=== PATIENT | female | born 1985 | race African-American/Black ===

== ENCOUNTER 2020-05-08 16:03 | Emergency (ER) | payer MEDICAID ==
--- NOTE | 2020-05-08 16:45 | EDM.PDOC ---
ED HPI GENERAL MEDICAL PROBLEM - General Chief Complaint: Chest Pain Stated Complaint: CHEST PAIN Time Seen by Provider: 05/08/20 16:05 Source of Information: Reports: Patient, Old Records, RN History Limitations: Reports: No Limitations - History of Present Illness INITIAL COMMENTS - FREE TEXT/NARRATIVE: 35 yo female here with L chest and L mandibular pain. Both about 2 days worth of pain. Pain is not severe. No other sx's. No fever. Has a pHx of bad teeth. Has a dentist, but has yet to call. Thinks the acetaminophen she is taking is helping enough. Denies injury or cough or fever. No cardiac hx. Onset: Gradual Onset Date: 05/06/20 Duration: Day(s):, Waxing/Waning Location: Reports: Face, Chest Quality: Reports: Ache Severity: Mild Improves with: Reports: Medication Worsens with: Reports: Movement (of L arm with regards to the chest pain. ) Context: Reports: Other (See HPI) Associated Symptoms: Reports: Chest Pain (L lateral). 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 - Related Data Allergies Allergy/AdvReac Type Severity Reaction Status Date / Time diphenhydramine Allergy Hives Verified 05/08/20 16:19 [From Benadryl] Home Meds: Home Meds Clindamycin HCl 150 mg PO QID #28 capsule 05/08/20 [Rx] Past Medical History Psychiatric History: Reports: Depression Social & Family History - Tobacco Use Tobacco Use Status *Q: Current Every Day Tobacco User Years of Tobacco use: 12 Packs/Tins Daily: 0.5 ED ROS GENERAL - Review of Systems Review Of Systems: See Below Constitutional: Reports: No Symptoms HEENT: Reports: Dental Pain Respiratory: Reports: No Symptoms Cardiovascular: Reports: Chest Pain (L lateral chest wall pain. ) GI/Abdominal: Reports: No Symptoms : Reports: No Symptoms Musculoskeletal: Reports: Other (L chest wall) Skin: Reports: No Symptoms. Denies: Rash, Erythema Neurological: Reports: No Symptoms Psychiatric: Reports: No Symptoms ED EXAM, GENERAL - Physical Exam Exam: See Below Exam Limited By: No Limitations General Appearance: Alert, WD/WN, No Apparent Distress, Obese Eye Exam: Bilateral Eye: Normal Inspection Ears: Normal External Exam, Normal Canal, Hearing Grossly Normal, Normal TMs Ear Exam: Bilateral Ear: Auricle Normal, Canal Normal, TM normal Nose: Normal Inspection, No Blood Throat/Mouth: Normal Inspection, Normal Lips, Normal Oropharynx, Normal Voice, No Airway Compromise. No: Normal Teeth (teeth in very poor condition through out.) Head: Atraumatic, Normocephalic Neck: Normal Inspection Respiratory/Chest: No Respiratory Distress, Lungs Clear, Normal Breath Sounds, No Accessory Muscle Use. No: Chest Non-Tender (L chest wall mild tenderness) Cardiovascular: Regular Rate, Rhythm, No Edema Back Exam: Normal Inspection Extremities: Normal Inspection Neurological: Alert, Oriented, CN II-XII Intact, Normal Cognition, No Motor/Sensory Deficits Psychiatric: Normal Affect, Normal Mood Skin Exam: Warm, Dry, Intact, Normal Color, No Rash Course - Vital Signs Last Recorded V/S: Last Vital Signs Temp 36.1 C 05/08/20 16:24 Pulse 74 05/08/20 16:24 Resp 14 05/08/20 16:24 BP 141/82 H 05/08/20 16:24 Pulse Ox 100 05/08/20 16:24 Departure - Departure Time of Disposition: 16:46 Disposition: Home, Self-Care 01 Condition: Fair Clinical Impression: Dental infection, Chest wall pain - Discharge Information *PRESCRIPTION DRUG MONITORING PROGRAM REVIEWED*: Not Applicable *COPY OF PRESCRIPTION DRUG MONITORING REPORT IN PATIENT SHAHRIAR: Not Applicable Prescriptions: Clindamycin HCl 150 mg PO QID #28 capsule Instructions: Chest Wall Pain, [id number] Referrals: PCP,None [Primary Care Provider] - Additional Instructions: See your dentist jeremiah. Take the clindamycin as directed. Take acetaminophen and/or ibuprofen as needed for pain relief. Sepsis Event Note (ED) - Evaluation Sepsis Screening Result: No Definite Risk - Focused Exam Vital Signs: Vital Signs Temp Pulse Resp BP Pulse Ox 05/08/20 16:24 36.1 C 74 14 141/82 H 100
== END 2020-05-08 16:53 | disposition home or self-care (01) ==
LOC: JP.ED 16:03
DX: K04.7 Periapical abscess without sinus (principal); R07.89 Other chest pain; Z88.8 Allergy status to other drugs, medicaments and biological substances; F17.210 Nicotine dependence, cigarettes, uncomplicated
CPT/HCPCS: 99283

== ENCOUNTER 2021-03-02 19:53 | Emergency (ER) | payer MEDICAID ==
[2021-03-02] MEDS ORDERED: Sodium Chloride 0.9% 10 ML Syringe FLUSH PRN (20:31)
[2021-03-02] MEDS ORDERED: Ketorolac 30 MG/ML SDV IVPUSH ONE (20:33)
[2021-03-02] MEDS ORDERED: Haloperidol Lactate 5 MG/ML SDV IVPUSH ONE (20:34)
--- NOTE | 2021-03-02 20:37 | EDM.PDOC ---
ED HPI GENERAL MEDICAL PROBLEM - General Chief Complaint: Headache Stated Complaint: HEADACHE Time Seen by Provider: 03/02/21 20:25 Source of Information: Reports: Patient, Family, RN Notes Reviewed History Limitations: Reports: No Limitations - History of Present Illness INITIAL COMMENTS - FREE TEXT/NARRATIVE: 35-year-old female presents emergency department day complaint of headache, she states she has had a headache for several months she is from the [facility] but has been living in [facility] for the last 2 years. She is not established with a primary care physician. She does have a history of migraine headaches but this is different. She complains of some blurry vision she also has a new lump that is painful developed on the back of her head just noticed it yesterday. There is no nausea no shortness of breath or chest pain. She does admit to consuming Tylenol 2 tablets every 2-3 hours that she has been doing for the last several months. 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: Neurological History: Reports: Migraines Psychiatric History: Reports: Depression - Infectious Disease History Infectious Disease History: Reports: Chicken Pox Social & Family History - Family History Family Medical History: No Pertinent Family History - Tobacco Use Tobacco Use Status *Q: Current Every Day Tobacco User Years of Tobacco use: 20 Packs/Tins Daily: 0.5 - Caffeine Use Caffeine Use: Reports: None - Recreational Drug Use Recreational Drug Use: No ED ROS GENERAL - Review of Systems Review Of Systems: See Below Constitutional: Denies: Fever, Chills HEENT: Reports: Vision Change Respiratory: Reports: No Symptoms Cardiovascular: Reports: No Symptoms GI/Abdominal: Reports: No Symptoms Neurological: Reports: Headache - Physical Exam Exam: See Below Exam Limited By: No Limitations General Appearance: Alert, WD/WN, No Apparent Distress Eye Exam: Bilateral Eye: EOMI, Normal Fundi, PERRL Head Exam: Normocephalic, Other (There is a palpable lump occipital region right side tender to the touch) Neck: Normal Inspection, Supple, Non-Tender, Full Range of Motion Respiratory/Chest: No Respiratory Distress Course - Vital Signs Last Recorded V/S: Last Vital Signs Temp 97.6 F 03/02/21 20:14 Pulse 118 H 03/02/21 20:20 Resp 18 03/02/21 20:14 BP 133/88 03/02/21 20:20 Pulse Ox 99 03/02/21 20:14 - Orders/Labs/Meds Orders: Active Orders 24 hr Category Date Time Status Peripheral IV Care [RC] . DIRECTED Care 03/02/21 20:32 Active Lactated Ringers [Ringers, Lactated] 1,000 ml Med 03/02/21 20:45 Active IV .BOLUS Sodium Chloride 0.9% [Saline Flush] Med 03/02/21 20:31 Active 10 ml FLUSH ASDIRECTED PRN Peripheral IV Insertion Adult [OM.PC] Urgent Oth 03/02/21 20:31 Ordered Medication Orders Lactated Ringer's (Ringers, Lactated) 1,000 mls @ 999 mls/hr IV .BOLUS HAYDEE Last Admin: 03/02/21 20:48 Dose: 999 mls/hr Documented by: NICOLE Sodium Chloride (Sodium Chloride 0.9% 10 Ml Syringe) 10 ml FLUSH ASDIRECTED PRN PRN Reason: Keep Vein Open Last Admin: 03/02/21 20:48 Dose: 10 ml Documented by: NICOLE Labs: Laboratory Tests 03/02/21 03/02/21 Range/Units 20:31 20:31 WBC 11.3 H (4.5-11.0) K/uL RBC 4.97 (3.30-5.50) M/uL Hgb 12.6 (12.0-15.0) g/dL Hct 37.7 (36.0-48.0) % MCV 76 L (80-98) fL MCH 25 L (27-31) pg MCHC 33 (32-36) % Plt Count 466 H (150-400) K/uL Neut % (Auto) 66.4 H (36-66) % Lymph % (Auto) 26.7 (24-44) % [place] % (Auto) 5.8 (2-6) % Eos % (Auto) 0.9 L (2-4) % Baso % (Auto) 0.2 (0-1) % Sodium 137 L (140-148) mmol/L Potassium 3.3 L (3.6-5.2) mmol/L Chloride 103 (100-108) mmol/L Carbon Dioxide 23 (21-32) mmol/L Anion Gap 14.3 H (5.0-14.0) mmol/L BUN 12 (7-18) mg/dL Creatinine 0.9 (0.6-1.0) mg/dL Est Cr Clr Drug Dosing 82.45 mL/min Estimated GFR (MDRD) > 60 (>60) Glucose 106 (74-106) mg/dL Calcium 8.6 (8.5-10.1) mg/dL Total Bilirubin 0.3 (0.2-1.0) mg/dL AST 18 (15-37) U/L ALT 26 (12-78) U/L Alkaline Phosphatase 61 (46-116) U/L Total Protein 7.6 (6.4-8.2) g/dL Albumin 3.5 (3.4-5.0) g/dL Globulin 4.1 H (2.3-3.5) g/dL Albumin/Globulin Ratio 0.9 L (1.2-2.2) Meds: Medications Generic Name Dose Route Start Last Admin Trade Name Freq PRN Reason Stop Dose Admin Lactated Ringer's 1,000 mls @ 999 mls/hr 03/02/21 20:45 03/02/21 20:48 Ringers, Lactated IV 999 mls/hr .BOLUS HAYDEE Administration Sodium Chloride 10 ml 03/02/21 20:31 03/02/21 20:48 Sodium Chloride 0.9% 10 Ml Syringe FLUSH 10 ml ASDIRECTED PRN Administration Keep Vein Open Discontinued Medications Generic Name Dose Route Start Last Admin Trade Name Freq PRN Reason Stop Dose Admin Haloperidol Lactate 5 mg 03/02/21 20:34 03/02/21 20:47 Haloperidol Lactate 5 Mg/Ml Sdv IVPUSH 03/02/21 20:35 5 mg ONETIME ONE Administration Ketorolac Tromethamine 30 mg 03/02/21 20:33 03/02/21 20:47 Ketorolac 30 Mg/Ml Sdv IVPUSH 03/02/21 20:34 30 mg ONETIME ONE Administration Departure - Departure Time of Disposition: 21:59 Disposition: Home, Self-Care 01 Condition: Fair Clinical Impression: Headache Qualifiers: Headache type: unspecified Headache chronicity pattern: chronic headache Intractability: not intractable Qualified Code(s): R51.9 - Headache, unspecified; G89.29 - Other chronic pain - Discharge Information Instructions: General Headache Without Cause Referrals: PCP,None [Primary Care Provider] - Forms: ED Department Discharge Additional Instructions: Try Motrin as an alternative pain medication, please establish with primary care for further evaluation and work-up call return to the emergency department worsening of symptoms Sepsis Event Note (ED) - Evaluation Sepsis Screening Result: No Definite Risk - Focused Exam Vital Signs: Vital Signs Temp Pulse Resp BP Pulse Ox 03/02/21 20:20 118 H 133/88 03/02/21 20:14 97.6 F 118 H 18 140/92 H 99 - My Orders Last 24 Hours: My Active Orders 03/02/21 20:31 Sodium Chloride 0.9% [Saline Flush] 10 ml FLUSH ASDIRECTED PRN Peripheral IV Insertion Adult [OM.PC] Urgent 03/02/21 20:32 Peripheral IV Care [RC] . DIRECTED 03/02/21 20:45 Lactated Ringers [Ringers, Lactated] 1,000 ml IV .BOLUS - Assessment/Plan Last 24 Hours: My Active Orders 03/02/21 20:31 Sodium Chloride 0.9% [Saline Flush] 10 ml FLUSH ASDIRECTED PRN Peripheral IV Insertion Adult [OM.PC] Urgent 03/02/21 20:32 Peripheral IV Care [RC] . DIRECTED 03/02/21 20:45 Lactated Ringers [Ringers, Lactated] 1,000 ml IV .BOLUS Plan: Assessment Acuity = acute Site and laterality = headache Etiology = unknown Manifestations = none Location of injury = Home Lab values = CBC, CMP CT scan of the head unremarkable Plan Good improvement with Toradol, Haldol 1 L fluids, recommend she establish with primary care for further evaluation This note was dictated using [employer] voice recognition software please call with any questions on syntax or grammar.
[2021-03-02] MEDS ORDERED: Lactated Ringers 1,000 ML IV SCH (20:45)
--- NOTE | 2021-03-02 21:22 | CRLCT ---
For Patients: As a result of the Century Cures Act, medical imaging exams and procedure reports are released immediately into your electronic medical record. You may view this report before your referring provider. If you have questions, please contact your health care provider. INDICATION: Headache for several months. Right occipital lump. TECHNIQUE: Multiple axial images were obtained through the brain without contrast. Sagittal and coronal re-formatted images were obtained. COMPARISON: None. FINDINGS: The ventricles and sulci are within normal limits. There is no mass effect or midline shift. There is no intracranial hemorrhage. The segovia-white matter differentiation is unremarkable. There is a bony prominence in the right occipital region. There is no skull fracture seen. IMPRESSION: No acute intracranial abnormality. Please note that all CT scans at this facility use dose modulation, iterative reconstruction, and/or weight-based dosing when appropriate to reduce radiation dose to as low as reasonably achievable. Dictated by Vikas Newell MD @ 03/02/2021 9:21:02 PM (Electronically Signed)
== END 2021-03-02 22:30 | disposition home or self-care (01) ==
LOC: JP.ED 19:53
DX: R51.9 Headache, unspecified (principal); Z88.8 Allergy status to other drugs, medicaments and biological substances; Z72.0 Tobacco use
CPT/HCPCS: 36415; 70450; 80053; 85025; 96374; 96375; 99284; J1630; J1885; J7120

== ENCOUNTER 2022-09-07 18:59 | Emergency (ER) | payer MEDICAID ==
[2022-09-07] MEDS: Ketorolac 30 MG/ML SDV IM ONE (20:13)
== END 2022-09-07 21:06 | disposition home or self-care (01) ==
LOC: JP.ED 18:59
DX: S30.0XXA Contusion of lower back and pelvis, initial encounter (principal); Z88.8 Allergy status to other drugs, medicaments and biological substances; Z72.0 Tobacco use; W10.8XXA Fall (on) (from) other stairs and steps, initial encounter
CPT/HCPCS: 72192; 96372; 99283; J1885; 99282

== ENCOUNTER 2023-03-08 23:03 | Emergency (ER) | payer MEDICAID ==
[2023-03-08] MEDS ORDERED: Non-Formulary Medication 1 Each (Gabapentin [Neurontin] 600 MG Tablet) PO SCH (23:45)
[2023-03-08] MEDS ORDERED: risperiDONE 1 MG Tab PO SCH (23:45)
[2023-03-08] MEDS ORDERED: Non-Formulary Medication 1 Each (Bupropion Hcl [Bupropion Xl] 300 MG Tab.Er.24h) PO SCH (23:45)
[2023-03-08] MEDS ORDERED: LORazepam 1 MG Tab PO ONE (23:54)
[2023-03-09] MEDS ORDERED: buPROPion 150 MG Tab.ER PO ONE
[2023-03-09] MEDS ORDERED: Gabapentin 300 MG Cap PO ONE (00:02)
[2023-03-09] MEDS ORDERED: LURASIDONE HCL 80 MG PO SCH (09:00)
== END 2023-03-09 00:15 | disposition home or self-care (01) ==
LOC: JP.ED 23:03
DX: Z76.0 Encounter for issue of repeat prescription (principal); F17.210 Nicotine dependence, cigarettes, uncomplicated; Z79.899 Other long term (current) drug therapy; Z88.0 Allergy status to penicillin
CPT/HCPCS: 99281; A9270

== ENCOUNTER 2023-03-13 03:03 | Emergency (ER) | payer MEDICAID ==
[2023-03-13 03:59] LABS: BASOPHILS ABSOLUTE AUTO 0.04 K/uL (0.00-0.10); BASOPHILS PERCENT AUTO 0.3 % (0.1-1.3); EOSINOPHILS ABSOLUTE AUTO 0.19 K/uL (0.00-0.40); EOSINOPHILS PERCENT AUTO 1.6 % (0.0-5.4); HEMATOCRIT 37.2 % (34.3-46.0); IMMATURE GRAN ABSOLUTE AUTO 0.03 K/uL (0.00-0.23); IMMATURE GRAN PERCENT AUTO 0.2 % (0.0-0.7); LYMPHOCYTES ABSOLUTE AUTO 2.49 K/uL (0.8-3.3); LYMPHOCYTES PERCENT AUTO 20.7 % (11.4-47.7); MEAN CORPUSCULAR HEMOGLOBIN 24.9 pg (31.6-35.5); MEAN CORPUSCULAR HGB CONC 32.3 g/dL (31.6-35.5); MEAN CORPUSCULAR VOLUME 77.3 fL (81.4-99.0); MONOCYTES ABSOLUTE AUTO 0.77 K/uL (0.20-0.90); MONOCYTES PERCENT AUTO 6.4 % (3.3-12.6); NEUTROPHILS ABSOLUTE AUTO 8.49 K/uL (1.0-7.6); NEUTROPHILS PERCENT AUTO 70.8 % (40.0-78.1); PLATELET COUNT,PLT 387 K/uL (130-375); RED BLOOD CELL COUNT 4.81 M/uL (3.77-5.24)
[2023-03-13 04:21] LABS: ALANINE AMINOTRANSFERASE,ALT 20 U/L (12-78); ALBUMIN 3.5 g/dL (3.4-5.0); ALKALINE PHOSPHATASE 63 U/L (46-116); ASPARTATE AMNIOTRANSFERASE,AST 13 U/L (15-37); BILIRUBIN TOTAL 0.2 mg/dL (0.2-1.0); BLOOD UREA NITROGEN,BUN 12 mg/dL (7-18); CALCIUM 8.5 mg/dL (8.5-10.1); CARBON DIOXIDE,CO2 26 mmol/L (21-32); CHLORIDE,CL 101 mmol/L (100-108); CREATININE 0.9 mg/dL (0.6-1.0); ESTIMATED GFR 85 mL/min (>60); GLUCOSE RANDOM 112 mg/dL (74-106); POTASSIUM,K 3.7 mmol/L (3.6-5.2); PROTEIN TOTAL,TP 6.9 g/dL (6.4-8.2); SODIUM,NA 135 mmol/L (140-148)
[2023-03-13 04:32] LABS: ANION GAP 11.7 mmol/L (5.0-14.0); TROPONIN I HIGH SENSITIVITY < 4.0 pg/mL (<=60.3)
[2023-03-13] MEDS ORDERED: Alum Hydrox/Mag Hydrox/Simeth 15 ML, Lidocaine 2% 15 ML PO ONE ×2 (04:39)
[2023-03-13] MEDS ORDERED: Lidocaine 2% Viscous Solution 15 ML UD ONE (04:45)
== END 2023-03-13 05:11 | disposition home or self-care (01) ==
LOC: JP.ED 03:03
DX: K21.9 Gastro-esophageal reflux disease without esophagitis (principal); F17.210 Nicotine dependence, cigarettes, uncomplicated; Z79.899 Other long term (current) drug therapy; Z88.0 Allergy status to penicillin
CPT/HCPCS: 36415; 80053; 83735; 84484; 85025; 93005; 99285; A9270

== ENCOUNTER 2023-04-27 08:25 | Emergency (ER) | payer MEDICAID ==
[2023-04-27] MEDS ORDERED: Ketorolac 30 MG/ML SDV IVPUSH ONE (08:58)
[2023-04-27] MEDS ORDERED: Sodium Chloride 0.9% 1,000 ML IV SCH (09:00)
[2023-04-27 09:13] LABS: BASOPHILS ABSOLUTE AUTO 0.03 K/uL (0.00-0.10); BASOPHILS PERCENT AUTO 0.2 % (0.1-1.3); EOSINOPHILS ABSOLUTE AUTO 0.04 K/uL (0.00-0.40); EOSINOPHILS PERCENT AUTO 0.3 % (0.0-5.4); HEMATOCRIT 39.5 % (34.3-46.0); HEMOGLOBIN 13.1 g/dL (11.2-15.5); IMMATURE GRAN ABSOLUTE AUTO 0.07 K/uL (0.00-0.23); IMMATURE GRAN PERCENT AUTO 0.5 % (0.0-0.7); LYMPHOCYTES ABSOLUTE AUTO 2.44 K/uL (0.8-3.3); LYMPHOCYTES PERCENT AUTO 16.1 % (11.4-47.7); MEAN CORPUSCULAR HEMOGLOBIN 25.3 pg (31.6-35.5); MEAN CORPUSCULAR HGB CONC 33.2 g/dL (31.6-35.5); MEAN CORPUSCULAR VOLUME 76.4 fL (81.4-99.0); MONOCYTES ABSOLUTE AUTO 0.96 K/uL (0.20-0.90); MONOCYTES PERCENT AUTO 6.3 % (3.3-12.6); NEUTROPHILS PERCENT AUTO 76.6 % (40.0-78.1); PLATELET COUNT,PLT 486 K/uL (130-375); RED BLOOD CELL COUNT 5.17 M/uL (3.77-5.24); WHITE BLOOD CELL COUNT,WBC 15.1 K/uL (3.2-11.0)
[2023-04-27 09:33] LABS: ALANINE AMINOTRANSFERASE,ALT 14 U/L (12-78); ALKALINE PHOSPHATASE 80 U/L (46-116); ANION GAP 15.7 mmol/L (5.0-14.0); ASPARTATE AMNIOTRANSFERASE,AST 14 U/L (15-37); BILIRUBIN TOTAL 0.6 mg/dL (0.2-1.0); BLOOD UREA NITROGEN,BUN 7 mg/dL (7-18); CALCIUM 9.3 mg/dL (8.5-10.1); CARBON DIOXIDE,CO2 26 mmol/L (21-32); CHLORIDE,CL 100 mmol/L (100-108); CREATININE 0.9 mg/dL (0.6-1.0); EST CRCL DRUG DOSING (CG) 80.12 mL/min; ESTIMATED GFR 84 mL/min (>60); GLUCOSE RANDOM 121 mg/dL (74-106); POTASSIUM,K 3.7 mmol/L (3.6-5.2); PROTEIN TOTAL,TP 8.1 g/dL (6.4-8.2); SODIUM,NA 138 mmol/L (140-148)
[2023-04-27] MEDS ORDERED: Sodium Chloride 0.9% 10 ML Syringe FLUSH ONE (10:09)
[2023-04-27] MEDS ORDERED: Sodium Chloride 0.9% 50 ML IV SCH (10:15)
[2023-04-27] MEDS ORDERED: Iopamidol 612 MG/ML 100 ML Bottle IV SCH (10:15)
[2023-04-27 10:16] LABS: APPEARANCE,URINE SLIGHTLY CLOUDY (CLEAR); BILIRUBIN,URINE SMALL (NEGATIVE); COLOR,URINE YELLOW (YELLOW); GLUCOSE,URINE NEGATIVE (NEGATIVE); KETONES,URINE NEGATIVE (NEGATIVE); LEUKOCYTE ESTERASE,URINE NEGATIVE (NEGATIVE); NITRITE,URINE NEGATIVE (NEGATIVE); OCCULT BLOOD,URINE NEGATIVE (NEGATIVE); PH,URINE 6.5 (5.0-8.0); PROTEIN,URINE 30 mg/dL (NEGATIVE)
[2023-04-27 10:22] LABS: AMPHETAMINES SCREEN, URINE NEGATIVE (NEGATIVE); BARBITURATE SCREEN,URINE NEGATIVE (NEGATIVE); BENZODIAZEPINES SCREEN,URINE NEGATIVE (NEGATIVE); METHADONE SCREEN, URINE NEGATIVE (NEGATIVE); METHAMPHETAMINES SCREEN, URINE NEGATIVE (NEGATIVE); OXYCODONE SCREEN,URINE NEGATIVE (NEGATIVE); PROPOXYPHENE SCREEN,URINE NEGATIVE (NEGATIVE); THC SCREEN,URINE 50 NG/ML NEGATIVE (NEGATIVE)
[2023-04-27 10:27] LABS: RBC,URINE 0-5 (0-5); WBC,URINE 0-5 (0-5)
[2023-04-27 10:28] LABS: AMORPHOUS SEDIMENT,URINE NOT SEEN; BACTERIA,URINE MODERATE; EPITHELIAL CELLS,URINE MANY; MUCUS,URINE MANY
== END 2023-04-27 12:46 | disposition home or self-care (01) ==
LOC: JP.ED 08:25
DX: N83.201 Unspecified ovarian cyst, right side (principal); F17.210 Nicotine dependence, cigarettes, uncomplicated; Z88.0 Allergy status to penicillin; Z79.899 Other long term (current) drug therapy
CPT/HCPCS: 36415; 74177; 80053; 80305; 81001; 81025; 85025; 86140; 96361; 96374; 99284; J1885; J3490; J7030; Q9967